=== PATIENT | female | born 1995 | race Two or more races ===

== ENCOUNTER 2024-05-23 14:39 | Outpatient (AMB) | payer MEDICAID, SELFPAY ==
[2024-05-23 14:57] VITALS: BP 109/69; PULSE 79; RESP 16; TEMP 35.9; O2SAT 98
--- NOTE | 2024-05-23 14:57 | OBCLNT_ITS ---
Vital Signs 05/23/24 14:57 Weight 83.121 kg Weight Measurement Method Standing Scale BP 109/69 Blood Pressure Source Automatic Cuff Blood Pressure Location Left Upper Arm Position Sitting Respiration 16 Pulse 79 Pulse Source Monitor Temp 96.6 F L Temp Source Oral Pulse Oximetry (%) 98 Oxygen Delivery Method Room Air Allergies/Home Meds Allergies & Medications Allergies No Known Allergies Allergy (Verified 05/23/24 14:58) Medication Reconciliation No Known Home Medications 05/23/24 [History Confirmed 05/23/24] Intake Visit Data Collection New Patient or Established: New Patient (never been to [facility]) Reason for Visit:: OB TRANSFER Seen by Clinical Staff ONLY (RN/MA): No Electrical Controls Engineer Required: No Do You Feel Safe at Home: Yes Authorities Contacted: N/A PCP or OBGYN visit in last 3 months: Yes Hx Now: Yes Are you currently on any form of Control: No Pain Present Currently: No Smoking Status Smoking Status: Never smoker Questionnaires Covid-19 Vaccine Questionnaire Has patient been vacinated for Covid-19 Have you been vacinated for Covid-19: No PHQ-9 PHQ-2 Over the last 2 weeks, how often have you been bothered by any of the following problems? 1. Little interest or pleasure in doing things: not at all 2. Feeling down, depressed, or hopeless: not at all Total score: 0 PHQ-9 3. Trouble falling or staying asleep, or sleeping too much: Not at all 4. Feeling tired or having little energy: Not at all 5. Poor appetite or overeating: Not at all 6. Feeling bad about yourself - or that you are a failure or have let yourself or your family down: Not at all 7. Trouble concentrating on things, such as reading the newspaper or watching television: Not at all 8. Moving or speaking so slowly that other people could have noticed? - Or the opposite - being so fidgety or restless that you have been moving around a lot more than usual: not at all 9. Thoughts that you would be better off or of hurting yourself in some way: Not at all Total score: 0 Source: Developed by Drs. Dalton Blackwood, Belinda Bragg, Juve Ziegler and colleagues, with an educational baylee from [employer] Depression screen completed yes Social History Living Situation History Marital Status: Lives With: Family Housing: House Tobacco History Smoking Status: Never smoker Second Hand Smoke Exposure: No Alcohol History Alcohol Intake: Never Domestic Abuse History Do You Feel Safe at Home: Yes Past Medical History Past Medical History Have you ever been diagnosed with any of the following: Neurological Problems Cerebrovascular Accident (CVA): No Transient Ischemic Attacks (TIA): No Dementia: No Alzheimer's Disease: No Parkinson's Disease: No Brain Tumor: No Guillain-Denbo Syndrome: No Ivan's Palsy: No Cardiology Problems Myocardial Infarction: No Cardiac Arrhythmia: No Atrial Fibrillation: No Hypertension: No Respiratory Problems Chronic Obstructive Pulmonary Disease (COPD): No Asthma: No Bronchitis: No Emphysema: No Pneumonia: No Pulmonary Fibrosis: No Tuberculosis: No Hx Cough: No Cough: No Wheezing: No Chest Deformities: No Smoking: No Smoking Cessation Counseling: No Smoking Exposure: No Stomache/Intestinal Problems Liver Cancer: No Hepatitis: No Cirrhosis: No Pancreatic Cancer: No Gall Bladder Disease: No Genital/Urinary Problems Chronic Kidney Disease: No Renal Disease: No Kidney Stones: No Polycystic Kidney Disease: No Neurogenic Bladder: No Reproductive Problems Breast Cancer: No Endometriosis: No Fibroids: No Genital Herpes: No Gonorrhea: No Previous Pregnancies: Yes Syphilis: No Musculoskeletal Problems Muscular Dystrophy: No Myasthenia Gravis: No Marfan's Syndrome: No Bone Cancer: No Arthritis: No Scoliosis: No Carpal Tunnel Syndrome: No Fibromyalgia: No Head,Eye,Nose,Throat Problems Cataracts: No Glaucoma: No Blind: No Retinal Detachment: No Endocrine Problems Diabetes Mellitus Type 1: No Diabetes Mellitus Type 2: No Hypoglycemia: No [place]'s Syndrome: No Junior's Disease: No Hyperthyroidism: No Hypothyroidism: No Thyroid Cancer: No Parathyroid Disease: No Blood Problems Anemia: No Leukemia: No Hemophilia: No Thalassemia: No Psychologic Problems Depression: No Anxiety: No Behavior Problems: No Self-Mutilation: No Other Problems Hospitalization: No Autoimmune Disease: No Down Syndrome: No Autism: No Developmental Delay: No Surgical History Angioplasty: No Appendectomy: No Bariatric Surgery: No Breast Surgery: No Cancer Surgery: No Carotid Endarterectomy: No History of Present Illness HPI Narrative 27-year-old 4 para 3 comes to the [facility] OB clinic for her first visit. Patient is a transfer [facility] care [facility]. Her last period October 03, 2023. She has a history of irregular periods and patient is not sure of her. She did have an ultrasound and April 19, 2024 at [facility]. Patient was 36 weeks and this change due date May 13, 2024. Patient is unable to go to [place] for M appointment due to lack of transportation. Reports movement. Denies any complaints of labor. Denies leaking fluid. Patient denies any current medical history. Denies any surgeries. And denies any social habits. She is taking vitamins. She reports movement. Patient had a abnormal 1 hour GTT with the . But her 3-hour was normal. She is O+, antibody screen negative, RPR nonreactive, rubella immune, hepatitis B negative, hep C negative, GC and Chlamydia were negative. Patient has been anemic with the and she is taking iron twice a day. OB Initial Visit OB Flowsheet OB Flowsheet Initial Weight: Not Recorded Date -?-?-?-?-?-?-?-?-?-?-?-?- EGA Weight Edema CTX Effacement BP Fundal ht Pres Dilation Effacement Station Visit Note Alb Glu FHR Mov 05/23/24 -?-?-?-?-?-?-?-?-?-?-?-?- 40w 6d 83.121 kg absent absent 109/6 9 36 40 cephalic 27-yea r-old 4 para 3 at 36 weeks today 27-year-old 4 para 3 at 40 and 6 weeks today. gbs tod. discuss labor precaution, fkc bid. continue PNV, will send to [facility] for nst/bpp and complete sono .. fkc bid, increase fluid 27-year-old 4 para 3 at 41wk3 today. GBS today. discuss labor precaution, fkc bid. continue PNV, will send to [facility] for nst/bpp and complete sono today. schedule for induction. medical release from [facility] for OB sono.fkc bid, increase fluid. 156 active Menstrual History Menstrual reliability: unknown Flow: normal Menstrual regularity: irregular Monthly: Yes On control pills at conception: No Associated symptoms (LMP): Denies amenorrhea, nausea, vomiting, fatigue, breast tenderness, urinary frequency, irritability, bloating or other OB History : 4 Para: 3 Hx # Pregnancies: 0 Hx Total # of Abortions (Spontaneous & Elective): 0 # of Living Children: 3 Infection History & Risk Evaluation History of STDs: none HIV risk evaluation: low risk Hepatitis B risk evaluation: low risk Patient or partner has history of Genital Herpes: No Genetic Screening & History Genetic Screening/Teratology Counseling - Includes patient, baby's father, or anyone in either family with: 1. Patient's age 35 years or older as of estimated date of delivery: No 2. Thalassemia ([place], Omani, Mediterranean, or Background); MCV less than 80: No 3. Neural Tube Defect (Meningomyelocele, Spina Bifida, or Anencephaly): No 4. Congenital Heart Defect: No 5. Down Syndrome: No 6. Petey-Sachs (Ashkenazi Samaritan, Cajun, [place]): No 7. Alicia Disease (Ashkenazi Samaritan): No 8. Familial Dysautonomia (Ashkenazi Samaritan): No 9. Sickle Cell Disease or Trait (): No 10. Hemophilia or other blood disorders: No 11. Muscular Dystrophy: No 12. Cystic Fibrosis: No 13. Geovanna's Chorea: No 14. Mental Retardation/Autism: No 15. Other inherited genetic or chromosomal disorder: No 16. Maternal Metabolic Disorder (EG,TYPE 1 Diabetes, PKU): No 17. Patient or baby's father had a child with defects not listed above: No 18. Recurrent loss or a stillbirth: No 19. Medications (including supplements, vitamins, herbs or otc drugs)/illicit/recreational drugs/alcohol since last menstrual period: No 20. Any other: No Infection History 1. Live with someone with TB or exposed to TB: No 2. Rash or viral illness since last menstrual period: No 3. Hepatitis B,C: No Other (see comments) Source: [employer] Review of Systems Review of Systems Systems Reviewed: All systems reviewed, normal except as documented Constitutional Constitutional: Denies fatigue Gastrointestinal Gastrointestinal: Denies bloating, Denies nausea and Denies vomiting Genitourinary Genitourinary: Denies amenorrhea and Denies urinary frequency Psychiatric Psychiatric: Denies irritability Endocrine Endocrine: Denies fatigue Exam General Limitations: no limitations General Appearance: alert, in no apparent distress, comfortable, cooperative, healthy appearing, well developed and well groomed Head Head exam: atraumatic, normocephalic and normal inspection Resp Respiratory exam: Present normal lung sounds bilaterally Card Cardiovascular exam: Present regular rate, normal rhythm and normal heart sounds Abdominal Abdominal exam: Present soft (fh:36w. fht 156) and normal bowel sounds External exam: Present normal external exam (vagina pink, no discharge) Psych Psychiatric exam: Present normal affect and normal mood Assessment & Plan Diagnosis / Problem List (1) Encounter for supervision of normal in multigravida in third trimester: Status: Acute Plan GBS dated today. Medical release for ultrasound results from [facility]. Discussed labor precautions and kick count. I reviewed dating with patient. Patient sent to [facility] labor and delivery for NST BPP and schedule induction. Patient will call [facility] for record release. Reviewed labs with patient Additional Plan Follow Up: 1 Week Office Procedures OB Clinic LOC & Office Proc's Nursing/Assessment Patient Status: Initial/New Patient OB Clinic Nursing Assessment: Medication Reconciliation, Update PMH in EMR and Vital Signs OB Clinic Coordination of Care: Complex Care and Chronic Disease 1-5, Consent,records obtained, informed consent, Education Simp Pt/Fam, Lab and Imaging orders, Results/Orders obtained and Staff clarify orders Special Needs: Heart tones New Patient Charge New Patient Point Assignment: 1134 New Patient Point Charge: ELECTRICIAN ELEVATOR MAINTENANCE Level 4 ([id number])
== END 2024-05-23 15:17 | disposition home or self-care (01) ==
LOC: HODSOBC 14:39
PROVIDERS: PCP Obstetrics & Gynecology; Referring Provider Obstetrics & Gynecology; Supervising Provider Obstetrics & Gynecology; Visit Provider Obstetrics & Gynecology
DX: O09.893 Supervision of other high risk pregnancies, third trimester (principal); O48.0 Post-term pregnancy; Z3A.40 40 weeks gestation of pregnancy
CPT/HCPCS: 99204; G0463

== ENCOUNTER 2024-05-23 21:31 | Outpatient (CLI) | payer MEDICAID, SELFPAY ==
--- NOTE | 2024-05-23 21:38 | XR_ITS ---
Examination: Biophysical profile, ultrasound Date and time of exam: May 23, 2024 1001 hrs. Indications: Post dates Technique: Multiple transabdominal sonographic images of the pelvis abdomen obtained. Attention is directed to the breathing movement, gross body movement, amniotic fluid volume and tone. Findings: Amniotic fluid index 15.1 cm Total biophysical profile is 8 of 8. breathing movement is 2. Gross body movement is 2. tone is 2. Qualitative amniotic fluid volume is 2 Impression: Biophysical profile is 8 of 8.
--- NOTE | 2024-05-23 21:38 | XR_ITS ---
Examination: Complete OB ultrasound greater than 14 weeks Date and time of exam: May 23, 2024 7 hours Indications: Post dates Findings: Viable intrauterine single fetus with single amniotic sac presentation cephalic Cardiac motion 176 BPM Placenta fundal grade 2 Clinical: Insertion 3 vessel seen Amniotic fluid index 16.7 cm spine maternal right Cervix 3.3 cm Ovaries obscured by bowel gas. Composite estimated gestational age based on BPD, head circumference, abdominal circumference, femur length is 39 weeks 5 days Estimated weight 3952 g. Survey of intracranial anatomy, spinal anatomy, abdominal anatomy, four-chamber heart performed with no abnormalities identified. Impression: Viable intrauterine gestation cephalic presentation Estimated gestational age 39 weeks 5 days.
[2024-05-23 22:01] VITALS: BP 131/75; PULSE 72; RESP 18; RESP 98; TEMP 37.2
[2024-05-23 22:15] VITALS: BMI 37.1
[2024-05-23 22:18] VITALS: TEMP 37.2
== END 2024-05-24 | disposition home or self-care (01) ==
LOC: S4S1 21:33 → S4SX 21:34
PROVIDERS: Referring Provider Obstetrics & Gynecology; Visit Provider Obstetrics & Gynecology
DX: O48.0 Post-term pregnancy (principal); Z3A.41 41 weeks gestation of pregnancy
CPT/HCPCS: 59025; 76805; 76819

== ENCOUNTER 2024-05-28 19:24 | Observation (INO) | payer MEDICAID, SELFPAY ==
[2024-05-28 19:42] VITALS: BP 129/77; PULSE 76; RESP 10; RESP 18; TEMP 36.6
[2024-05-28 19:47] VITALS: TEMP 36.6; BMI 234.8
--- NOTE | 2024-05-28 20:29 | PC.NURSE ---
per diem interpreter used to discuss plan of care. pt is understanding that the documentation that we have dates her at 42 1/7wks. she understands that the next follow up appointment that she has on june 12 is past her due date and that she will need to have a appointment sooner. She is understanding that we may need to continue to call her for IOL or have her come in for NST. Pt continues to state that she does not believe she is past her due date by her LMP, she feels her baby moving and does not have contractions. she states she is refusing her induction at this time and will come in if her water breaks or if she is feeling contractions.
== END 2024-05-28 20:20 | disposition home or self-care (01) ==
PROVIDERS: Admitting Provider Specialist; Visit Provider Specialist
DX: O48.0 Post-term pregnancy (principal); Z3A.42 42 weeks gestation of pregnancy
CPT/HCPCS: 59899; G0378

== ENCOUNTER 2024-05-31 17:22 | Inpatient (IN) | payer MEDICAID, SELFPAY ==
[2024-05-31] VITALS (64 sets, daily range): BP systolic 121–131; BP diastolic 63–80; PULSE 64–86; RESP 16–97; TEMP 36.6–37.1; O2SAT 96–100; BMI 38.4
--- NOTE | 2024-05-31 17:57 | XR_ITS ---
Examination: Complete OB ultrasound greater than 14 weeks Date and time of exam: May 31, 2024 1901 hrs. Indications: Post dates, unknown presentation Findings: Viable intrauterine single fetus with single amniotic sac presentation cephalic Cardiac motion 147 BPM Placenta fundal grade 2 Umbilical cord insertion 3 vessel seen Amniotic fluid index 9 cm spine maternal left Cervix ovaries obscured by the fetus. Composite estimated gestational age based on BPD, head circumference, abdominal circumference, femur length is weeks 0 days Estimated weight 4081 g. Survey of intracranial anatomy, spinal anatomy, abdominal anatomy, four-chamber heart performed with no abnormalities identified. Impression: Viable intrauterine gestation cephalic presentation Estimated gestational age 40 weeks 0 days Estimated weight 4081 g.
[2024-05-31 18:47] LABS: Basophils % (Auto) 0 % (0-2.5); Eosinophils # (Auto) 0.1 Thou/mm3 (0.0-0.5); Eosinophils % (Auto) 1 % (0-10); Hemoglobin 11.4 g/dL (12.0-16.0); Immature Granulocytes % (Auto) 1 % (0-0); Immature Granulocytes Auto 0.06 Thou/mm3 (0.00-0.00); Lymphocytes # (Auto) 1.8 Thou/mm3 (1.0-4.8); Lymphocytes % (Auto) 29 % (10-50); Mean Corpuscular HGB Conc 33.5 g/dl (31.0-37.0); Mean Corpuscular Hemoglobin 28.9 pg (25.0-35.0); Mean Corpuscular Volume 86 fL (80-100); Monocytes # (Auto) 0.5 Thou/mm3 (0.0-0.8); Monocytes % (Auto) 7 % (0-12); Neutrophils % (Auto) 62 % (37-80); Nucleated Red Blood Cell % 0 /100 WBC (0); Platelet Count 135 Thou/mm3 (140-440); RDW Standard Deviation 55.6 fL (36.4-46.3); Red Blood Count 3.94 Miln/mm3 (4.00-5.20); White Blood Count 6.4 Thou/mm3 (3.6-11.0)
[2024-05-31 19:27] LABS: Syphilis Nonreactive (Nonreactive)
[2024-05-31] MEDS: RINGERS LACTATED 1000 ML 1,000 ML 100 ML IV (19:56)
[2024-05-31] MEDS: Ampicillin Inj 2,000 MG in SODIUM CHLORIDE 0.9% (POP) 100 ML 200 MG IV (20:00)
--- NOTE | 2024-05-31 20:05 | PD.LDHP ---
Documentation for date of: 05/31/24 OB Labor/Induct. HPI History of Present Illness Chief complaint: Irregular contractions : 4 Term pregnancies: 3 pregnancies: 0 Living children: 3 History of Abortions: Spontaneous and Elective: 0 History of Vaginal deliveries: 3 History of sections: No History of : No ROSELYN: 05/13/24 Gestational Age (weeks): 42 Gestational Age (days): 5 History of present illness: Patient is a 29-year-old -0-0-3 Mongolian-speaking only female at approximately 42 weeks . She had late care at 6 months . 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 She does not know her group B strep status. She states her other babies were up to 8-1/2 pounds. She presented with irregular contractions and on exam in triage was 3 cm dilated started leaking meconium stained fluid in triage and was admitted. Comments: Patient had very limited care. She had a visit at Dr. Gross office at 36 weeks. 1 ultrasound and labs are on the chart. Baby was measuring 6 pounds 13 ounces at [address] Gonzales stating patient is 42 weeks and change. Patient disagrees with this dating. History of Present Dating criteria: based on 3rd trimester US only Adequate Care: No Ultrasounds: other (36-week ultrasound only) Labs Maternal Blood Type: O Pos Labs: Positive: Rubella Titre, Negative: RPR, Hepatitis B, HIV, Chlamydia and Gonorrhea and Unknown: Group Beta Strep Past Medical History Surgical History SURGICAL: Negative Section Past Medical History Comments PMH COMMENT: Patient has a history of vaginal delivery x 3 in the past the babies were up to 8-1/2 pounds per patient no records available. All delivered in [place]. Meds Home Medications and Allergies Home Medications ?Medication ?Instructions ?Recorded ?Confirmed ?Type vits no.130-ferrous fum 1 tab PO QDAY 05/23/24 05/28/24 History 27 mg iron-folic acid 800 mcg tablet ( Vitamin) Allergies Allergy/AdvReac Type Severity Reaction Status Date / Time No Known Allergies Allergy Verified 05/28/24 19:53 OB Exam Physical Exam Vital signs: Temp Pulse Resp BP Pulse Ox 98 F 72 18 121/72 97 05/31/24 17:29 05/31/24 19:23 05/31/24 17:29 05/31/24 19:23 05/31/24 20:00 Routine Abdominal Exam Abdominal: Present soft Comments: Baby 9 pounds by Jaylan's Detailed Labor and Delivery Exam Effacement (%): 80 Cervix position: posterior station: -2 Consistency: soft Presentation: Vertex Membranes: other (Leaking fluid in triage) Amniotic fluid: thick meconium monitor accelerations: 15x15 monitor decelerations: None medical terminologist variability: Moderate (11-25) Contraction frequency (min): Irregular Contraction intensity: Mild OB Results Labs 05/31/24 18:20 Labs: Short CBC 05/31/24 Range/Units 18:20 WBC 6.4 (3.6-11.0) Thou/mm3 Hgb 11.4 L (12.0-16.0) g/dL Hct 34.0 L (36.0-46.0) % Plt Count 135 L (140-440) Thou/mm3 OB Assessment & Plan Assessment and Plan (1) Encounter for supervision of normal in multigravida in third trimester: Status: Acute (2) Active labor at term: Status: Acute (3) Meconium in amniotic fluid: Status: Acute Assessment and plan: Admit patient. Nursery aware. Will have shoulder dystocia precautions present and respiratory therapy present for thick meconium. By ultrasound baby is 9 to 9-1/2 pounds by Jaylan again 9 pounds adequate pelvis.
[2024-05-31] MEDS: Ampicillin Inj 1,000 MG in SODIUM CHLORIDE 0.9% (Popper) 50 ML 50 MG IV (23:46)
[2024-06-01] VITALS (154 sets, daily range): BP systolic 89–183; BP diastolic 50–110; PULSE 58–135; RESP 16–20; TEMP 36.5–38.6; O2SAT 88–100
[2024-06-01 01:09] LABS: Amphetamine/Metham Scrn,Ur OB Negative (Negative); Benzoylecgonine Screen, Ur OB Negative (Negative); Opiate Screen,Urine OB Negative (Negative); THC Screen,Urine OB Negative (Negative)
[2024-06-01] MEDS: fentaNYL CIT INJ 50 mCg/ML AMP 2ML 100 MCG IV (02:08)
--- NOTE | 2024-06-01 03:35 | PD.LDPN ---
Documentation for date of: 06/01/24 OB Labor Progress Note Pain Control Comments: Patient requesting epidural Pelvic Exam Dilation (cm): 7-8 Effacement (%): 80 station: -2 Amniotic membrane status: Ruptured Comments: Patient making slow progress and has been 7 to 8 cm for approximately 3 hours. Contractions Contraction frequency: 3 min Contraction intensity: Moderate Status status: Category l Assessment and Plan Assessment: active labor Plan OB labor note: continuous present management and begin Pitocin augmentation Comments: Will have epidural placed. Pitocin started to get contractions strong if no significant progress patient will need a . She is had very little care and an ultrasound at 36 weeks on 04/19/24 revealed the baby to be 6 pounds 13 ounces. The baby could be close to 10 lbs.
--- NOTE | 2024-06-01 04:20 | ESPR_ITS ---
Documentation for date of: 06/01/24 OB Labor Progress Note Pain Control Pain control: tolerating well and epidural Pelvic Exam Dilation (cm): 8 Effacement (%): 80 station: -3 Amniotic membrane status: Ruptured Contractions Monitor mode: Internal Contraction frequency: 3 min Contraction intensity: Moderate Status status: Category l Assessment and Plan Assessment: active labor Plan OB labor note: begin Pitocin augmentation Comments: head is high. -3 station. She is 8 cm and just had an epidural. Contractions are regular but [place] units are inadequate. Start low-dose Pitocin. Patient was told about the possibility of a shoulder dystocia secondary to suspected large for gestational age . Patient was told the only way that she can avoid a shoulder dystocia would be a section. Patient declines a section for potential shoulder dystocia at this time. HAL GROSS and HAL Manzano at bedside to translate and witness this conversation.
[2024-06-01] MEDS: Ampicillin Inj 1,000 MG in SODIUM CHLORIDE 0.9% (Popper) 50 ML 50 MG IV (05:03)
[2024-06-01] MEDS: TRANEXAMIC ACID 1,000 MG IVPB 1,000 MG/100 ML BAG 200 MG IV ×2 (07:55→08:30)
[2024-06-01] MEDS: OXYTOCIN in NS 20 units 20 UNIT/1,000 ML BAG 125 UNIT IV (07:55)
[2024-06-01] MEDS: MISOPROSTOL 200 mCg TABLET 800 MCG PR (07:56)
--- NOTE | 2024-06-01 08:17 | OBDSUM_ITS ---
Shoulder Dystocia General Time head delivered:: 07:51 Traction performed:: none at any time Maneuvers/Procedures Lv: Order Maneuver Performed:: 1 Time begun:: 07:51 Time ended:: :52 Performed by:: Amanda Roca RN and suprapubic pressure: Order Maneuver Performed:: 2 Time begun:: 07:51 Time ended:: 07:52 Performed by:: Amanda Roca RN posterior arm release: Order Maneuver Performed:: 3 Time begun:: :52 Time ended:: :52 Performed by:: Dr Alarcon Was fundal Pressure applied? Fundal pressure applied:: No Shoulder Under Symphisis at head delivery:: right Immediate Assessment Immediate assessment:: no apparent injury Data (Strong) Data Hx Section: No : 4 Para: 3 Term: 3 : 0 : 0 Delivery Data (Strong) Labor Data ROM Date: 05/31/24 ROM Time: 17:55 Rupture Type: SROM Amniotic Fluid: Meconium Stained Delivery Data Labor Onset Stage 1 Date: 05/31/24 Labor Onset Stage 1 Time: 20:59 Labor Onset Stage 2 Date: 06/01/24 Labor Onset Stage 2 Time: 07:10 Delivery Date: 06/01/24 Delivery Time: 07:52 Placenta Delivery Date: 06/01/24 Placenta Delivery Time: 07:55 Delivered by: Jose Angel Alarcon Delivery nurse: Radha Tran Other staff at delivery: 2nd Nurse Other staff at delivery: Bellows Tester Other staff at delivery: Nursery Nurse Other staff at delivery: Nurse Other staff at delivery: Rae Morrell Other staff at delivery: Chris Ramachandran Other staff at delivery: Eleni Colby Other staff at delivery: Trupti Lemus Delivery Method Delivery: Vaginal Delivery Type: Spontaneous Presentation: Vertex Position: OA Anesthesia Type Primary Anesthesia: Epidural Placenta Placenta Delivery: Spontaneous Cord Sample: Cord Blood Obtained, Cord Gases Arterial and Cord Gases Venous Lacerations #1: Perineal: 1st degree (No perienum but superfical skin layer around introitus, not bleeding) EBL Estimated blood loss (ml): 300 Umbilical Cord Nuchal Cord: None Additional Procedures None Complications Complications: Shoulder Dystocia Hemorrhage [place] Data (Strong) Data Infant Gender: Female Weight Grams: 4400 weight (lbs): 9 oz weight (oz.): 11 lb 1 Minute Total: 7 5 Minute Total: 9
--- NOTE | 2024-06-01 08:26 | ESDS_ITS ---
DS: Providers Provider Date of admission: 05/31/24 17:58 Primary care physician: Physician No Primary/Family Admitting Provider: Loree Ramsey MD (OB Clinic) Attending Provider on Admission: Jose Angel Alarcon MD Attending Provider on DC: Jose Angel Alarcon MD Discharging Provider: Jose Angel Alarcon MD DS: Diagnosis Problem List Completed Was Problem List Reviewed/Reconciled?: Yes Summary/Hosp Course Brief History: Patient is a 29-year-old -0-0-3 [place] Arabian-speaking only female at approximately 42 weeks . She had late care at 6 months . 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 She does not know her group B strep status. She states her other babies were up to 8-1/2 pounds. She presented with irregular contractions and on exam in triage was 3 cm dilated started leaking meconium stained fluid in triage and was admitted. Time Spent with Patient Time attestation: Total time spent providing and/or coordinating discharge services: Exam Vital Signs Temp Pulse Resp BP Pulse Ox 98.2 F 111 H 16 135/71 H 100 06/01/24 06:26 06/01/24 08:20 05/31/24 19:23 06/01/24 08:20 06/01/24 07:22 Discharge Plan Plan Patient Disposition: HOME (Self Care) Disposition Comment: Stable Patient condition on transfer: Stable Prescriptions/Referrals Prescriptions/Med Rec: New ibuprofen 600 mg tablet 600 mg PO Q6H PRN (Reason: pain) Qty: 30 0RF amoxicillin-pot clavulanate 875-125 mg tablet 1 tab PO Q12H Qty: 10 0RF Continued Vitamin 27 mg iron- 800 mcg tablet 1 tab PO QDAY Referrals: No Primary/Family,Physician [Primary Care Provider] - Patient/Caregiver Discharge Instructions Discharge Activity: activity as tolerated Other Discharge Activity Instructions:: Follow up with Ashley Kennedy/Braulio/Supriya office in 6 weeks or prn. Other Discharge Diet Instructions: General Diet Education Materials: After a Vaginal , Understanding Blues, : Caring for Yourself Print Language: [place] Arabian Activity Restrictions/Additional Instructions: Prueba pelvica mika seis semanas. Llamada tu doctor para sangrado nargisofeliz 100.4 o mas, o depresion posparto. Stand Alone Forms: [employer] Award Info., Patient Portal Info Letter Discharge Order Discharge Orders: Discharge (Routine); Ordered 06/02/24 Ordered By: Loree Ramsey (OB Clinic) Planned Discharge Date 06/02/24
[2024-06-01 08:41] LABS: Base Excess, Arterial Cord Bld -4.3 (-5.6--2.7); Base Excess, Venous Cord Bld -4.7 (-4.5--2.4); PCO2, Arterial Cord Blood 44 mmHg (41-58); PH, Arterial Cord Blood 7.31 (7.23-7.33); PO2, Arterial Cord Blood 32 mmHg (12-24); pCO2, Venous Cord Blood 43 mmHg (33-44); pH, Venous Cord Blood 7.31 (7.30-7.40); pO2, Venous Cord Blood 33 mmHg (23-35)
[2024-06-01 08:44] LABS: HCO3, Arterial Cord Blood 22 mmol/L (20-25)
[2024-06-01 08:45] LABS: HCO3, Venous Cord 22 mmol/L (16-25)
[2024-06-01] MEDS: IBUPROFEN TAB 400 MG TABLET 800 MG PO ×2 (09:45→18:38)
[2024-06-01 11:23] LABS: Anion Gap 9 (7-16); BUN/Creatinine Ratio 16 Ratio (12-20); Blood Urea Nitrogen 11 mg/dL (9-23); Calcium 8.2 mg/dL (8.3-10.6); Carbon Dioxide 19.3 mMol/L (20.0-31.0); Chloride 108 mMol/L (98-107); Creatinine (Component) 0.7 mg/dL (0.6-1.3); Estimated Creatinine Clearance 107.4 mL/min (>60); Glucose 96 mg/dL (74-106); Osmolality,Calculated 271 (275-295); Potassium 3.5 mMol/L (3.4-5.1); Sodium 136 mMol/L (136-145); eGFR > 60 See Note
[2024-06-01] MEDS: ACETAMINOPHEN 325 MG TABLET 650 MG PO ×2 (11:53→20:31)
[2024-06-01] MEDS: Ampicillin Inj 2,000 MG in SODIUM CHLORIDE 0.9% (POP) 100 ML 200 MG IV ×2 (11:54→18:38)
[2024-06-01 14:10] LABS: Basophils % (Auto) 0 % (0-2.5); Eosinophils % (Auto) 0 % (0-10); Hemoglobin 10.4 g/dL (12.0-16.0); Immature Granulocytes % (Auto) 0 % (0-0); Immature Granulocytes Auto 0.07 Thou/mm3 (0.00-0.00); Lymphocytes # (Auto) 1.4 Thou/mm3 (1.0-4.8); Lymphocytes % (Auto) 9 % (10-50); Mean Corpuscular HGB Conc 33.5 g/dl (31.0-37.0); Mean Corpuscular Hemoglobin 29.9 pg (25.0-35.0); Mean Corpuscular Volume 89 fL (80-100); Monocytes % (Auto) 7 % (0-12); Neutrophils # (Auto) 13.2 Thou/mm3 (1.8-7.7); Neutrophils % (Auto) 84 % (37-80); Nucleated Red Blood Cell % 0 /100 WBC (0); Platelet Count 102 Thou/mm3 (140-440); RDW Standard Deviation 57.4 fL (36.4-46.3); Red Blood Count 3.48 Miln/mm3 (4.00-5.20); White Blood Count 15.6 Thou/mm3 (3.6-11.0)
--- NOTE | 2024-06-01 14:30 | PC.NURSE ---
called geriatric social work professor, spoke with doug, asked regarding car seat for pt due to pt can not afford one, states will call annelise JUAREZ
--- NOTE | 2024-06-01 16:07 | PC.SS ---
GARBAGE DEPOT WORKER received phone call from OB nurse, Amanda; relaying that patient will require a car seat upon discharge. GARBAGE DEPOT WORKER contacted Ana JUAREZ to submit request for car seat. GARBAGE DEPOT WORKER informed by Public Safety staff, Lizette; that officer Alek is not in and will not return to the department until Wednesday. GARBAGE DEPOT WORKER informed that no other staff person available to assist with car seat request. GARBAGE DEPOT WORKER contacted [facility] and was informed by staff member, Amelia; [facility] department does not provide car seats. [facility] offers free car seats after parent has participated in 2 hour safety course. GARBAGE DEPOT WORKER conducted bedside contact with the patient to provide update with injection molding engineer services. GARBAGE DEPOT WORKER informed patient of need to contact family/friends in order for patient to obtain car seat prior to discharge. Patient acknowledged need to reach out to family/friends to in order to secure a car seat prior to discharge. GARBAGE DEPOT WORKER updated bedside nurse.
[2024-06-02] MEDS: Ampicillin Inj 2,000 MG in SODIUM CHLORIDE 0.9% (POP) 100 ML 200 MG IV ×2 (00:53→06:15)
[2024-06-02] MEDS: IBUPROFEN TAB 400 MG TABLET 800 MG PO ×2 (03:07→12:46)
[2024-06-02 04:00] VITALS: BP 117/74; PULSE 57; RESP 18; TEMP 36.4; O2SAT 97
--- NOTE | 2024-06-02 08:07 | ESPR_ITS ---
Subjective Subjective Interval history: Patient is a 29-year-old G4 now P4004 status post vaginal delivery over an intact perineum by Dr. Alarcon 06/01/2024. Patient had one fever at 10 AM on 06/01/2024. She has been treated overnight with Ancef and gent. Today she denies fevers ,chills ,she denies heavy bleeding. She is Citizen Of The [place]-speaking only. She is breast-feeding. Her baby weighed 9 pounds 11 ounces and she had a minor shoulder dystocia but no lacerations. Exam Vital Signs Temp Pulse Resp BP Pulse Ox O2 Del Method 97.6 F 57 L 18 117/74 97 Room Air 06/02/24 04:00 06/02/24 04:00 06/02/24 04:00 06/02/24 04:00 06/02/24 04:00 06/01/24 23:55 Narrative Exam Patient is alert and oriented x 3 in no apparent distress. Fundus is firm. Objective Labs 06/01/24 13:10 06/01/24 10:30 Labs: Laboratory Results - last 24 hr 06/01/24 06/01/24 06/01/24 07:57 10:30 13:10 WBC 15.6 H D RBC 3.48 L Hgb 10.4 L Hct 31.0 L MCV 89 MCH 29.9 MCHC 33.5 RDW Std Deviation 57.4 H Plt Count 102 L D Neut % (Auto) 84 H Lymph % (Auto) 9 L [place] % (Auto) 7 Eos % (Auto) 0 Baso % (Auto) 0 Neut # (Auto) 13.2 H Lymph # (Auto) 1.4 [place] # (Auto) 1.0 H Eos # (Auto) 0.0 Baso # (Auto) 0.0 Immature Gran # (Auto) 0.07 H Absolute Nucleated RBC 0.00 Immature Gran % 0 Nucleated RBC % 0 Cord ABG pH 7.31 Cord ABG pCO2 44 Cord ABG pO2 32 H Cord ABG HCO3 22 Cord ABG Base Excess -4.3 Cord VBG pH 7.31 Cord VBG pCO2 43 Cord VBG pO2 33 Cord VBG HCO3 22 Cord VBG Base Excess -4.7 L Sodium 136 Potassium 3.5 Chloride 108 H Carbon Dioxide 19.3 L Anion Gap 9 BUN 11 Creatinine 0.7 Estim Creat Clear Calc 107.4 eGFR > 60 BUN/Creatinine Ratio 16 Glucose 96 Calculated Osmolality 271 L Calcium 8.2 L Blood Type Cancelled O Positive Antibody Screen NEGATIVE Direct Antiglob Test Cancelled Crossmatch See Detail Blood Bank Wristband ID Cancelled Yes Assessment & Plan Problem List (1) Encounter for supervision of normal in multigravida in third trimester: Problem details: Patient told not to go postdates next time. That next time if she comes in with a 10 pound baby she will end up with a . Status: Acute (2) Active labor at term: Problem details: Patient did well after delivery no hemorrhage. Afebrile 24 hours at 10 AM today. Status: Acute (3) Meconium in amniotic fluid: Problem details: Baby did well. Baby will be discharged with mother. Status: Acute Plan Comment Plan Comment: DC home today Time Spent With Patient Time: Total time spent is greater than 50% in coordination of care (as documented) at patient's floor/unit and/or counseling patient: Time with patient: less than 15 minutes
--- NOTE | 2024-06-02 08:11 | PD.LDDS ---
DS: Providers Provider Date of admission: 05/31/24 17:58 Primary care physician: Physician No Primary/Family Admitting Provider: Loree Ramsey MD ([facility]) Attending Provider on Admission: Seferino Kennedy MD Consults: 06/01/24 09:50 Referral Routine Comment: Attending Provider on DC: Loree Ramsey MD ([facility]) Discharging Provider: Loree Ramsey MD ([facility]) Anticipated date of discharge: 06/02/24 DS: Diagnosis Discharge Diagnosis (1) macrosomia, delivered, current hospitalization: Status: Acute Assessment & Plan: Patient will follow-up Wednesday with stock preparation operator. Patient was told explicitly not to come in next time 2 weeks after her due date. Patient was over 42 weeks . Baby was 9 pounds 11 ounces with a minor shoulder dystocia. Next time she might end up with a . (2) Term delivered: Status: Acute Assessment & Plan: Routine instructions. Problem List Completed Was Problem List Reviewed/Reconciled?: Yes Summary/Hosp Course Brief History: Patient is a 29-year-old -0-0-3 Rwandan-speaking only female at approximately 42 weeks . She had late care at 6 months . She stated she could not find an IT SECURITY ENGINEER provider. She does not know her group B strep status. She states her other babies were up to 8-1/2 pounds. She presented with irregular contractions and on exam in triage was 3 cm dilated started leaking meconium stained fluid in triage and was admitted. Peripartum Data Delivery Method: Normal Vaginal Delivery Laceration Description: no and see Delivery Summary Procedures: by Dr Alarcon 05/31/24. Minor shoulder dystocia. Please see delivery note for further details. No laceration. Patient had epidural in place. complications: other ( fever on Ancef and gent for 24 hours. Home on Augmentin.) Status at Discharge Cognitive/behavioral status at discharge: Alert and oriented x 3 in no apparent distress Functional status at discharge: independent ambulation Overall status at discharge: patient is progressing back to baseline Time Spent with Patient Time attestation: Total time spent providing and/or coordinating discharge services: Time spent: Less than 30 minutes Specific discharge activities: Routine instructions. Pelvic rest x 6 weeks. Exam Vital Signs Temp Pulse Resp BP Pulse Ox O2 Del Method 97.6 F 57 L 18 117/74 97 Room Air 06/02/24 04:00 06/02/24 04:00 06/02/24 04:00 06/02/24 04:00 06/02/24 04:00 06/01/24 23:55 Narrative Exam Patient is alert and oriented x 3 in no apparent distress. Fundus is firm and nontender. Discharge Plan Plan Patient Disposition: HOME (Self Care) Disposition Comment: Stable Patient condition on transfer: Stable Prescriptions/Referrals Prescriptions/Med Rec: New ibuprofen 600 mg tablet 600 mg PO Q6H PRN (Reason: pain) Qty: 30 0RF amoxicillin-pot clavulanate 875-125 mg tablet 1 tab PO Q12H Qty: 10 0RF Continued Vitamin 27 mg iron- 800 mcg tablet 1 tab PO QDAY Referrals: No Primary/Family,Physician [Primary Care Provider] - Patient/Caregiver Discharge Instructions Discharge Activity: activity as tolerated Other Discharge Activity Instructions:: Follow up with Ashley Kennedy/Braulio/Supriya office in 6 weeks or prn. Other Discharge Diet Instructions: General Diet Education Materials: After Delivery Duke Concerns, Anemia During , : Caring for Yourself Print Language: Rwandan Activity Restrictions/Additional Instructions: Pelvic rest for 6 weeks. Call for heavy bleeding, fevers of 101F or higher or severe depression. Stand Alone Forms: Hi[employer]ot Award Info., Patient Portal Info Letter Discharge Order Discharge Orders: Discharge (Routine); Ordered 06/02/24 Ordered By: Loree Ramsey ([facility]) Planned Discharge Date 06/02/24
[2024-06-02 08:27] VITALS: BP 104/66; PULSE 74; RESP 18; TEMP 36.4; O2SAT 99
--- NOTE | 2024-06-02 13:23 | XR_ITS ---
Examination:Right hip AP, lateral, AP pelvis 3 views Technique: Hip AP lateral, AP pelvis, 3 views Exam date and time:June 02, 2024 1343 hours INDICATIONS: Right pelvic pain today. FINDINGS: There is diastases at the symphysis 20 mm No hip or pelvic fracture IMPRESSION: Significant diastasis at the symphysis, 20 mm.
--- NOTE | 2024-06-02 15:50 | PC.SS ---
SS conducted bedside contact with the patient to address nursing referral indicating that patient was late to care.? Patient is Swedish speaking only.? Interpreting line used. SS introduced self and role.? SS asked for permission to speak in front of spouse.? Patient agreed.? Patient confirmed late to care because she she attempted to get an appointment at 3 months and due to being over booked, and problems with transportation so she was able to be scheduled at 6 months. Patient received care under the care of Dr. Gonzales at [facility] in [place]. NB is patient?s fourth child. ?NB was born on [birth year] via natural .? Ages of other children in the home: 3, 7, and 8. Patient has not decided upon a kiln setter. ?FOB is Ivan Walker. FOB resides in the home. Patient states she plans on breast feeding. Patient denies history of drugs or alcohol.? Patient denies any history of mental illness, CWS or DV. ?Patient is aligned with WIC. Patient does not posess FS or TANF. manager administrative services provided resources to include:? Parenting Network, Warm Line and community numbers. Patient has access to appropriate supplies and equipment.? Patient has access to a car seat.? However, they do not possess a vehicle. They have friends who assist in transportation. Patient describes possessing support system consisting of spouse and friends. Friend to provide transportation home. No further intervention required at this time. State Editor will be available to address any further concerns. SS updated bedside nurse.
[2024-06-02 16:30] VITALS: BP 121/76; PULSE 76; RESP 18; TEMP 37.1; O2SAT 99
--- NOTE | 2024-06-02 19:09 | PD.LDPPPRG ---
Subjective Subjective Interval history: This morning when I rounded on the patient she had not been out of bed a lot. Around lunchtime the nurse called me and stated she was having a lot of pain around her pubic symphysis with ambulating. Patient's baby is staying under the bili lights and patient would like to stay overnight. I ordered a pelvic x-ray to ensure there was no fracture. Patient did have almost a 10 pound baby and a minor shoulder dystocia at delivery. Exam Vital Signs Temp Pulse Resp BP Pulse Ox O2 Del Method 98.7 F 76 18 121/76 99 Room Air 06/02/24 16:30 06/02/24 16:30 06/02/24 16:30 06/02/24 16:30 06/02/24 16:30 06/02/24 16:30 Objective Labs 06/01/24 13:10 06/01/24 10:30 Assessment & Plan Problem List (1) macrosomia, delivered, current hospitalization: Status: Acute (2) Term delivered: Status: Acute (3) Sprain of symphysis pubis: Status: Acute Assessment and plan: Pelvic x-ray ordered and resulted. No fracture seen. Patient has a prominent pubic symphyseal separation of 20 mm. Recommend ibuprofen Tylenol rest and pelvic brace. Patient will stay overnight and reassess in the morning. Time Spent With Patient Time: Total time spent is greater than 50% in coordination of care (as documented) at patient's floor/unit and/or counseling patient:
[2024-06-02 20:12] VITALS: BP 123/67; PULSE 75; RESP 16; TEMP 36.7; O2SAT 98
[2024-06-02] MEDS: ACETAMINOPHEN 325 MG TABLET 650 MG PO (20:19)
[2024-06-03 03:25] VITALS: BP 114/68; PULSE 62; RESP 16; TEMP 36.6; O2SAT 96
[2024-06-03] MEDS: IBUPROFEN TAB 400 MG TABLET 800 MG PO (07:16)
[2024-06-03 08:00] VITALS: BP 110/71; PULSE 72; RESP 16; TEMP 36.6; O2SAT 98
--- NOTE | 2024-06-03 09:09 | PD.LDPPPRG ---
Subjective Subjective Interval history: Delivery type: Patient doing well this morning. No acute complaints. Ambulating, tolerating p.o. and voiding without difficulty. HTN/Pre-Eclampsia screen: No chest pain, shortness of breath, headache, visual changes, epigastric or right upper quadrant pain. Breast-feeding, lochia diminishing. Bowel: Flatus+/ BM+ Exam Vital Signs Temp Pulse Resp BP Pulse Ox O2 Del Method 97.8 F 62 16 114/68 96 Room Air 06/03/24 03:25 06/03/24 03:06/03/24 03:06/03/24 03:06/03/24 03:06/03/24 03:25 Constitutional Constitutional: no acute distress Routine HEENT Exam Head: Present normocephalic and atraumatic Eye: Present EOMI and PERRL ENT: Present mucous membranes moist Routine Neck Exam Neck: Present supple and trachea midline Routine Respiratory Exam Respiratory: Present chest non-tender, lungs clear, normal breath sounds and no resp distress Routine Cardiovascular Exam Cardiovascular: Present RRR Routine Abdominal Exam Abdominal: Present soft and normoactive bowel sounds Routine Extremities Exam Extremities: Present full ROM Routine Skin Exam Skin: Present intact, dry and warm Routine Neurological Exam Neurological: Present alert, oriented X3 and CN II-XII intact Routine Psychiatric Exam Psychiatric: Present normal affect and normal thought process Objective Labs 06/01/24 13:10 06/01/24 10:30 Assessment & Plan Problem List (1) macrosomia, delivered, current hospitalization: Status: Acute Assessment and plan: PPD/POD#2 1. Continue routine care 2. Transition to PO meds. 3. Encourage to ambulate/ breast-feed 4. Anticipate discharge home today. (2) Term delivered: Status: Acute (3) Sprain of symphysis pubis: Status: Acute Time Spent With Patient Time: Total time spent is greater than 50% in coordination of care (as documented) at patient's floor/unit and/or counseling patient:
--- NOTE | 2024-06-03 09:10 | PD.LDDS ---
DS: Providers Provider Date of admission: 05/31/24 17:58 Primary care physician: Physician No Primary/Family Admitting Provider: Loree Ramsey MD ([facility]) Attending Provider on Admission: Seferino Kennedy MD Consults: 06/01/24 09:50 Referral Routine Comment: Attending Provider on DC: Seferino Kennedy MD Discharging Provider: Seferino Kennedy MD DS: Diagnosis Discharge Diagnosis (1) Sprain of symphysis pubis: Status: Acute (2) Term delivered: Status: Acute (3) Gestational thrombocytopenia: Status: Acute (4) Chorioamnionitis: Status: Acute (5) Uterine atony, , current hospitalization: Status: Acute (6) (normal spontaneous vaginal delivery): Status: Acute Problem List Completed Was Problem List Reviewed/Reconciled?: Yes Summary/Hosp Course Brief History: Patient is a 29-year-old -0-0-3 Andorran-speaking only female at approximately 42 weeks . She had late care at 6 months . She stated she could not find an DERMATOLOGIST provider. She does not know her group B strep status. She states her other babies were up to 8-1/2 pounds. She presented with irregular contractions and on exam in triage was 3 cm dilated started leaking meconium stained fluid in triage and was admitted. Peripartum Data Delivery Method: Normal Vaginal Delivery Time Spent with Patient Time attestation: Total time spent providing and/or coordinating discharge services: Exam Vital Signs Temp Pulse Resp BP Pulse Ox O2 Del Method 97.8 F 62 16 114/68 96 Room Air 06/03/24 03:25 06/03/24 03:25 06/03/24 03:25 06/03/24 03:25 06/03/24 03:25 06/03/24 03:25 Discharge Plan Plan Patient Disposition: HOME (Self Care) Disposition Comment: Stable Patient condition on transfer: Stable Prescriptions/Referrals Prescriptions/Med Rec: New ibuprofen 600 mg tablet 600 mg PO Q6H PRN (Reason: pain) Qty: 30 0RF amoxicillin-pot clavulanate 875-125 mg tablet 1 tab PO Q12H Qty: 10 0RF docusate sodium [Stool Softener] 100 mg capsule 100 mg PO QDAY 30 Days Qty: 30 0RF Continued Vitamin 27 mg iron- 800 mcg tablet 1 tab PO QDAY Referrals: No Primary/Family,Physician [Primary Care Provider] - Braulio ([facility]),Loree Muhammad MD [Physician] - Shea Epps CNM [Certified Nurse Medication Reconciliation Technician] - Patient/Caregiver Discharge Instructions Discharge Activity: activity as tolerated Other Discharge Activity Instructions:: Follow up with Ashley Kennedy/Braulio/Supriya office in 6 weeks or prn. Other Discharge Diet Instructions: General Diet Education Materials: After a Vaginal , Understanding Blues, : Caring for Yourself Print Language: Andorran Activity Restrictions/Additional Instructions: Prueba pelvica mika seis semanas. Jesusda daja doctor para sangrado nargisofeliz 100.4 o mas, o depresion posparto. Stand Alone Forms: Hiwot Award Info., Patient Portal Info Letter Discharge Order Discharge Orders: Discharge (Routine); Ordered 06/03/24 Ordered By: Seferino Kennedy Planned Discharge Date 06/03/24
[2024-06-03 11:51] VITALS: BP 117/73; PULSE 64; RESP 18; TEMP 36.7; O2SAT 98
== END 2024-06-03 14:16 | disposition home or self-care (01) | DRG 560 ==
LOC: S4SX 06-01 08:27 → S4NX 06-01 10:24
PROVIDERS: Specialist; Admitting Provider Obstetrics & Gynecology; Visit Provider Obstetrics & Gynecology
DX: O48.0 Post-term pregnancy (principal); O77.0 Labor and delivery complicated by meconium in amniotic fluid; Z37.0 Single live birth; Z3A.42 42 weeks gestation of pregnancy; O66.0 Obstructed labor due to shoulder dystocia; O99.12 Other diseases of the blood and blood-forming organs and certain disorders involving the immune mechanism complicating childbirth; D69.59 Other secondary thrombocytopenia; O36.63X0 Maternal care for excessive fetal growth, third trimester, not applicable or unspecified; O41.1230 Chorioamnionitis, third trimester, not applicable or unspecified; O86.4 Pyrexia of unknown origin following delivery; O70.0 First degree perineal laceration during delivery; O72.1 Other immediate postpartum hemorrhage; O71.6 Obstetric damage to pelvic joints and ligaments
CPT/HCPCS: 36415; 59025; 59409; 73502; 76805; 80048; 80170; 80307; 82803; 85025; 86780; 86850; 86880; 86900; 86901; 86923; 94762; J0290; J1580; J2590; J2795; J3010; J3490; J7050; J7120; S0191; A9270

== ENCOUNTER 2024-06-27 12:54 | Outpatient (AMB) | payer MEDICAID, SELFPAY ==
[2024-06-27 13:11] VITALS: BP 119/75; PULSE 72; RESP 16; TEMP 36.3; O2SAT 98; BMI 32.4
--- NOTE | 2024-06-27 13:11 | AMB.OBPP ---
Vital Signs 06/27/24 13:11 Height 1.5 m Height Method Stated Weight 72.802 kg Weight Measurement Method Standing Scale BMI 32.4 BP 119/75 Blood Pressure Source Automatic Cuff Blood Pressure Location Right Upper Arm Position Sitting Respiration 16 Pulse 72 Pulse Source Monitor Temp 97.4 F Temp Source Oral Pulse Oximetry (%) 98 Oxygen Delivery Method Room Air Allergies/Home Meds Allergies & Medications Allergies No Known Allergies Allergy (Verified 06/27/24 13:12) Medication Reconciliation vits no.130-ferrous fum 27 mg iron-folic acid 800 mcg tablet ( Vitamin) 1 tab PO QDAY 05/23/24 [History Confirmed 06/27/24] ibuprofen 600 mg tablet 600 mg PO Q6H PRN pain #30 tabs 06/01/24 [Rx Confirmed 06/27/24] docusate sodium 100 mg capsule (Stool Softener) 100 mg PO QDAY 30 days #30 caps 06/03/24 [Rx Confirmed 06/27/24] Intake Visit Data Collection New Patient or Established: Established Patient (seen at [facility] within 3 years) Reason for Visit:: FOLLOW UP Seen by Clinical Staff ONLY (RN/MA): No Land Acquisition Analyst Required: No Do You Feel Safe at Home: Yes Authorities Contacted: N/A PCP or OBGYN visit in last 3 months: Yes Hx Now: No Are you currently on any form of Control: No Pain Present Currently: Yes Pain Location: Back Pain Scale Used: Singh-Marin/Numerical Pain scale:: 5 Smoking Status Smoking Status: Never smoker BOOKSEAMER BLINDSTITCH: Past Medical History Past Medical History: No Hx Neurological Disorders, No Hx Hypothyroidism, No Hx Hyperthyroidism, No Hx Breast Cancer, No Hx Cardiac Disorders, No Hx Hypertension, No Hx Blood Disorders, No Hx Anemia, No Hx Gastrointestinal Disorders, No Hx Renal Disease, No Hx Diabetes Mellitus Type 1 and No Hx Diabetes Mellitus Type 2 Questionnaires Covid-19 Vaccine Questionnaire Has patient been vacinated for Covid-19 Have you been vacinated for Covid-19: Yes Social History Living Situation History Lives With: Family Housing: House Tobacco History Smoking Status: Never smoker Second Hand Smoke Exposure: No Alcohol History Alcohol Intake: Never Domestic Abuse History Do You Feel Safe at Home: Yes EPDS - PP Depression Screening [place] Pospartum Depression Screen I have been able to laugh and see the funny side of things: (0) As much as I always could I have looked forward with enjoyment to things: (0) As much as I ever did I have blamed myself unnecessarily when things went wrong: (0) No, never I have been anxious or worried for no good reason: (0) No, not at all I have felt scared or panicky for no very good reason: (0) No, not at all Things have been getting on top of me: (0) No, I have been coping as well as ever I have been so unhappy that I have had difficulty sleeping: (0) No, not at all I have felt sad or miserable: (0) No, not at all I have been so unhappy that I have been crying: (0) No, never The thought of harming myself has occurred to me: (0) Never EPDS completed yes Care OB Visit Log OB Flowsheet Initial Weight: Not Recorded Date <del>?</del> EGA Weight BP Alb Glu CTX Pres Fundal ht FHR Mov Dilation Station Effacement Hx Notes Visit Note 05/23/24 <del>?</del> 40w 6d 83.121 kg 109/69 absent cephalic 36 40 156 active 27-year-old 4 para 3 at 36 weeks today 27-year-old 4 para 3 at 40 and 6 weeks today. gbs tod. discuss labor precaution, fkc bid. continue PNV, will send to [facility] for nst/bpp and complete sono .. fkc bid, increase fluid 27-year-old 4 para 3 at 41wk3 today. GBS today. discuss labor precaution, fkc bid. continue PNV, will send to [facility] for nst/bpp and complete sono today. schedule for induction. medical release from [facility] for OB sono.fkc bid, increase fluid. ROSELYN Calculator Estimated Delivery Date Method Current WG Current Estimate 05/17/24 Ultrasound #1 45w 6d Other Estimates 07/09/24 LMP (Uncertain) 38w 2d HPI Interval History: 29 yo for 3 week . vag delivery 06/01/24. baby girl. 8lb. breast and bottle. sibling adjusting, father of baby involved. limited support at home. deneis depression at this time. reports feeling happy. patient is not sex active. plans to use nexplanon Was or delivery considered high risk: No Delivery type: vaginal (post dates) Was labor induced: no Gestational age at delivery (weeks): 42 Delivery date: 06/01/24 Delivering provider: Dr Alarcon, Delivery complications: Yes Delivery complications comment: short shoulder dystocia Is patient : Yes Is patient sexually active: No Contraception planned: patient desire nexplanon Review of Systems Review of Systems ROS limited to current BOOKSEAMER BLINDSTITCH complaints: Yes Narrative Review of Systems: no BOOKSEAMER BLINDSTITCH complaints Exam Narrative Physical exam: 2nd degree laceration healing, no sign of infection, no swelling, fundus well involuted, below umbilicus, small lochia, negative homans,no phlebitis, breast soft,no mastitis General Limitations: no limitations General Appearance: alert, in no apparent distress, comfortable, cooperative, healthy appearing, well developed and well groomed Head Head exam: atraumatic, normocephalic and normal inspection Card Cardiovascular exam: Present regular rate, normal rhythm and normal heart sounds Abdominal Abdominal exam: Present soft and normal bowel sounds Extremities Extremities exam: Present normal inspection and full ROM Psych Psychiatric exam: Present normal affect and normal mood Office Procedures OB Clinic LOC & Office Proc's Nursing/Assessment Patient Status: Established Patient OB Clinic Nursing Assessment: Medication Reconciliation, Update PMH in EMR and Vital Signs OB Clinic Coordination of Care: Complex Care and Chronic Disease 1-5, Consent,records obtained, informed consent, Education Simp Pt/Fam, Lab and Imaging orders, Results/Orders obtained and Staff clarify orders Established Patient Charge Established Patient Point Assignment: 105 Established Patient Point Charge: EP Level 3 (80-115) Post Follow-up Visit Post Follow up Visit: Yes Assessment & Plan Diagnosis / Problem List (1) Routine Follow-Up: (2) Lactating mother: Status: Acute Plan discuss nexplanon side effect and effectiveness, reviewed insert procedure. reviewed latching and breast feeding position, increase fluids, rest, ok to walk. no sex. continue PNV, rtc for nexplanon insert Care Reviewed delivery summary and any complications: Yes Uterus involuted to: below umbilicus Perineal / incision healing noted: Yes Screened for depression: Yes Discussed family planning & contraception: Yes Contraception planned: patient desire nexplanon Counseling on safe resumption of sexual activity: Yes Counseling on gradual excercise: Yes Discussed and concerns (describe), provided support: Yes Referred to bed control specialist: No Counseled on good nutrition, hydration, and self care: Yes Reviewed vaccine status: Yes Vaccines due: none Chronic & current problems reconciled on problem list: Yes care discussed; questions answered: feeding and sleep Follow up: other (no sex, RTC 3 week for nexplanon insert) (FP) Tobacco Smoking Status: Never smoker (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
== END 2024-06-27 13:29 | disposition home or self-care (01) ==
LOC: HODSOBC 12:54
PROVIDERS: Supervising Provider Advanced Practice Midwife; Visit Provider Advanced Practice Midwife
DX: Z39.2 Encounter for routine postpartum follow-up (principal); Z39.1 Encounter for care and examination of lactating mother
CPT/HCPCS: 99213; G0463